=== PATIENT | female | born 1980 | race Caucasian/White ===

== ENCOUNTER 2018-12-18 10:54 | Day surgery (SDC) | payer OTHER ==
[2018-12-17 17:33] VITALS: BMI 58.3
[~2018-12-18] VITALS: Ht 160 cm; Wt 152.1 kg
[2018-12-18] VITALS (19 sets, daily range): BP systolic 128–159; BP diastolic 60–96; PULSE 70–83; RESP 14–24; Ht 160 cm; Wt 152.1 kg
[~2018-12-18 10:54] MED LIST: CEFAZOLIN 2 GM/50 ML (PMX) 50 ML IVPB ONE; SOD CHLORIDE 0.9% 1,000 ML IV SCH
[2018-12-18] MEDS ORDERED: ESCI20TA PO (11:27)
--- NOTE | 2018-12-18 14:10 | PREAC ---
Date/Time of Note Date/Time of Note DATE: 12/18/18 TIME: 14:09 Anesthesia Eval and Record Evaluation Time Pre-Procedure Interview DATE: 12/18/18 TIME: 14:09 Age 38 Sex female NPO: 8 hrs Preoperative diagnosis SYMPTOMATIC CHOLELITHIASIS Planned procedure LAP NADINE Past Medical History Past Medical History: Includes GI: Morbid obesity (BMI:59) Surgery & Anesthesia Issues No known issue Meds Anticoagulation: No Beta Naseem within 24 hr: No Reason Beta Naseem not given: Pt. not on B-Naseem Reported Medications Escitalopram Oxalate* (Lexapro*) 20 Mg Tablet, 20 MG PO DAILY, #30 TAB 12/18/18 Current Medications Sodium Chloride 1,000 ml @ 75 mls/hr [id number] IV ; Start 12/18/18 at 06:00; Stop 12/18/18 at 21:00 Meds reviewed: Yes Allergies Coded Allergies: No Known Allergy (Unverified , 12/18/18) Allergies Reviewed: Yes Labs/Studies Labs Reviewed: Reviewed by anesthesiologist test: Negative Pre-procedure Exam Last vitals Vital Signs Date Temp Pulse Resp B/P (MAP) Pulse Ox O2 O2 Flow FiO2 Time Delivery Rate 12/18/18 98.2 71 16 128/60 98 Room Air 12:45 (82) Airway: Adequate mouth opening, Adequate thyromental dist Mallampati: Mallampati II Teeth: Normal Lung: Normal Heart: Normal ASA Physical Status ASA physical status: 4 Emergency: None Planned Anesthetic General/MAC: ETT Planned Pain Management Parenteral pain med Pre-operative Attestations Prior to commencing anesthesia and surgery, the patient was re-evaluated, there was verification of: *The patient's identity *The results of appropriate recent lab work and preoperative vital signs *The above evaluation not changing prior to induction *Anesthetic plan, risk benefits, alternative and complications discussed with patient/family; questions answered; patient/family understands, accepts and wishes to proceed. Suleman Downs M.D. Dec 18, 2018 14:10
[2018-12-18] MEDS ORDERED: MIDAZOLAM 1 MG/ML 2 ML INJ ONE (14:12)
[2018-12-18] MEDS ORDERED: GLYCOPYRROLATE 0.4 MG INJ ONE (14:12)
[2018-12-18] MEDS ORDERED: PROPOFOL 20 ML ONE (14:12)
[2018-12-18] MEDS ORDERED: CEFAZOLIN 1 GM INJ ONE (14:12)
[2018-12-18] MEDS ORDERED: NEOSTIGMINE 3 MG/3 ML SYRINGE ONE (14:12)
[2018-12-18] MEDS ORDERED: ONDANSETRON 4 MG INJ ONE (14:12)
[2018-12-18] MEDS ORDERED: DEXAMETHASONE 4 MG/ML 5 ML INJ ONE (14:12)
[2018-12-18] MEDS ORDERED: ROCURONIUM 50 MG INJ ONE (14:12)
[2018-12-18] MEDS ORDERED: FENTAnyl 50 MCG/ML VIAL ONE (14:12)
[2018-12-18] MEDS ORDERED: ROPIVACAINE 0.5 % 30 ML VIAL ONE (14:15)
[2018-12-18] MEDS ORDERED: MIDAZOLAM 1 MG/ML 2 ML INJ IV PRN (14:30)
[2018-12-18] MEDS ORDERED: hydrALAzine 20 MG INJ IV PRN (14:30)
[2018-12-18] MEDS ORDERED: FENTAnyl 50 MCG/ML VIAL IV PRN ×2 (14:30)
[2018-12-18] MEDS ORDERED: OXYCODONE/ACETAMINOPHEN (5/325) TAB PO PRN ×2 (14:30)
[2018-12-18] MEDS ORDERED: DIPHENHYDRAMINE 50 MG INJ IV PRN (14:30)
[2018-12-18] MEDS ORDERED: EPHEDrine 25 MG/5 ML SYG IV PRN (14:30)
[2018-12-18] MEDS ORDERED: HYDROmorphONE 1 MG/5 ML IV SYRINGE IV PRN ×2 (14:30)
[2018-12-18] MEDS ORDERED: IPRATROPIUM (NEB) 0.5 MG/2.5 ML AMP HHN PRN (14:30)
[2018-12-18] MEDS ORDERED: MEPERIDINE 25 MG INJ IV PRN (14:30)
[2018-12-18] MEDS ORDERED: TRIMETHOBENZAMIDE 100 MG/ML VIAL IM PRN (14:30)
[2018-12-18] MEDS ORDERED: ONDANSETRON 4 MG INJ IV PRN (14:30)
[2018-12-18] MEDS ORDERED: ALBUTEROL 0.083% (NEB) 2.5 MG/3 ML AMP HHN PRN (14:30)
[2018-12-18] MEDS ORDERED: LABETALOL HCL 20MG INJ IV PRN (14:30)
[2018-12-18] MEDS ORDERED: SUGAMMADEX SODIUM 200 MG/2 ML VIAL IV ONE (14:53)
[2018-12-18] MEDS ORDERED: ESMOLOL 10 ML ONE (15:13)
--- NOTE | 2018-12-18 15:15 | OPR ---
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 She is here for her left elective laparoscopic cholecystectomy. Due to her morbid obesity she was told of her increased risks in the perioperative and postoperative period. Risks benefits and personnel and alternatives were discussed the patient. Patient expressed understanding and consents to the operation. Procedure Description Patient is taken to the OR and prepped and draped in usual sterile fashion. Surgical time was performed. IV antibiotics are given. Supraumbilical midline incision was made with a 15 blade. This incision is taken down to the fascia. Due to her morbid obesity the technical aspect of this operation was much more difficult and access and ports was also more difficult. Her midline incision had to be extended much further than normal for surgery of this caliber. This extended incision was made in the supraumbilical midline incision and an extensive amount of subcutaneous tissue was cauterized to reach the fascia. 0 Vicryl stay sutures were placed on either side of the fascia. The midline was o pened and Tovar trocar was introduced and pneumoperitoneum was established. Once again the technical difficulties of this operation due to her near super morbid obesity due to its constraints space and anatomic differences. Additional ports were placed in the mid epigastric 12 mm port and right upper quadrant upper flank 5 mm ports. The gallbladder also appeared very thickened and intrahepatic. Due to this technical difficulty a dome down approach was initially started this allowed mobilization of the gallbladder. This allowed then retraction of the gallbladder by grasping the fundus and retracted lateral and cephalad. Again due to her morbid obesity the technical aspects of this operation was difficult due to retraction issues visualization issues and mobility issues. Careful dissection was made of the cystic duct and cystic artery. The critical view was established. The cystic duct is divided with 3 clips proximal 1 clip distal and the division was performed laparoscopic scissors. Cystic artery was divided with 3 clips proximal clip distal and the division was performed lap scopic scissors. Considerable amount of technical difficulty was encountered in retraction and dissection. The gallbladder was then retrieved using the Endo Catch bag. Good hemostasis was ensured minimal suction irrigation was used. All ports were removed under direct visualization. Closure of the supraumbilical port site was also much more difficult as there was an extensive amount of subcutaneous tissues. The fascia was identified in a [id number] 0 Vicryl suture was placed. The 0 Vicryl stay sutures were also tied down. All skin incisions were stapled closed. A tap block was provided by the anesthesiologist at the beginning of the case. Dry dressings were applied. Bev COSBY Dec 18, 2018 15:15
--- NOTE | 2018-12-18 15:28 | PAC ---
Date/Time of Note Date/Time of Note DATE: 12/18/18 TIME: 15:28 Post-Anesthesia Notes Post-Anesthesia Note Last documented vital signs Vital Signs Date Temp Pulse Resp B/P (MAP) Pulse Ox O2 O2 Flow FiO2 Time Delivery Rate 12/18/18 98.6 15:21 12/18/18 71 16 128/60 98 Room Air 12:45 (82) Activity: WNL Respiratory function: WNL Cardiovascular function: WNL Mental status: Baseline Pain reasonably controlled: Yes Hydration appropriate: Yes Nausea/Vomiting absent: Yes Suleman Downs M.D. Dec 18, 2018 15:28
[2018-12-18] MEDS ORDERED: HYDROCODONE/APAP (5/325) TAB PO ONE (15:30)
[2018-12-18] MEDS: FENTAnyl 50 MCG/ML VIAL IV PRN ×3 (16:03→16:22)
[2018-12-18] MEDS: HYDROmorphONE 1 MG/5 ML IV SYRINGE IV PRN ×3 (16:03→16:23)
== END 2018-12-18 17:08 | disposition home or self-care (01) ==
LOC: SDS 10:54
PROVIDERS: ATTEND Surgery
DX: K80.10 Calculus of gallbladder with chronic cholecystitis without obstruction (principal); E66.09 Other obesity due to excess calories
CPT/HCPCS: 47564; 88304; J0690; J1100; J1170; J2250; J2405; J2710; J2795; J3010; Z7512; Z7610